=== PATIENT | male | born 1950 | race Caucasian/White ===

== ENCOUNTER 2022-01-10 07:41 | Emergency (ER) | payer MEDICARE, OTHER ==
[~2022-01-10] VITALS: Ht 175.3 cm; Wt 77.1 kg
[2022-01-10 07:55] VITALS: BP 130/90
[2022-01-10 08:32] LABS: Basophils # (auto) 0.1 10 ^3/uL (0-0.2); Basophils % (auto) 0.8 % (0.0-2.0); Eosinophils # (auto) 0.1 10 ^3/uL (0-0.8); Eosinophils % (auto) 0.7 % (0.0-7.0); Hematocrit 27.6 % (41.0-53.0); Hemoglobin 9.1 g/dL (13.5-17.5); Lymphocytes # (auto) 2.8 10 ^3/uL (0.4-5.4); Lymphocytes % (auto) 30.5 % (10.0-50.0); Mean Corpuscular Hemoglobin 28.7 pg (28.0-32.0); Mean Corpuscular Hgb Conc. 32.8 g/dL (32.0-36.0); Mean Corpuscular Volume 87.6 fL (80.0-100.0); Monocytes # (auto) 0.4 10 ^3/uL (0-1.3); Monocytes % (auto) 4.7 % (0.0-12.0); Neutrophils # (auto) 5.8 10 ^3/uL (1.6-8.6); Neutrophils % (auto) 63.3 % (37.0-80.0); Nucleated Red Blood Cells % 0.1 %; Red Blood Cells 3.16 10^6/uL (4.5-5.90); Red Cell Distribution Width 19.1 % (11.8-14.3); White Blood Cell 9.2 10^3/uL (4.4-10.8)
[2022-01-10 08:44] LABS: INR 1.03 (0.9-1.15)
[2022-01-10 08:49] LABS: BUN/Creatinine Ratio 9.9; Calcium 8.4 mg/dL (8.5-10.1); Potassium 4.1 mmol/L (3.5-5.1)
[2022-01-10] MEDS ORDERED: PRED20TA2 PO (09:25)
[2022-01-10] MEDS ORDERED: FER325T PO (09:25)
== END 2022-01-10 09:39 | disposition home or self-care (01) ==
LOC: ER 07:41
DX: R04.0 Epistaxis (principal); H61.23 Impacted cerumen, bilateral; D64.9 Anemia, unspecified
CPT/HCPCS: 36415; 69209; 80048; 85025; 85610